=== PATIENT | female | born 1950 | race Caucasian/White ===

== ENCOUNTER 2022-01-25 07:53 | Inpatient (IN) | payer MEDICARE, OTHER ==
[~2022-01-25] VITALS: Ht 165.1 cm; Wt 54.4 kg
--- NOTE | 2022-01-25 07:53 | NUR ---
PT BIBRA 839 FROM HOME C/O WEAK AND DIZZY X 2 DAYS. PT IS AAOX3, NOT IN RESPIRATORY DISTRESS, HOOKED TO V/S MONITOR, KEPT RESTED AND COMFORTABLE. WILL CONTINUE TO MONITOR.
--- NOTE | 2022-01-25 08:00 | NUR ---
RECIEVED PT 71 YRS FEMAL CAME BY BALJIT from home c/o dizzness and weekness for 2 days awake and alert no weekness no pain blood drow by RN
--- NOTE | 2022-01-25 08:00 | NUR ---
SEEN AND EXAMINED BY .
--- NOTE | 2022-01-25 08:09 | NUR ---
COVID SWAB DONE AND SENT TO LAB
--- NOTE | 2022-01-25 08:10 | NUR ---
EKG done ant bed side
--- NOTE | 2022-01-25 08:14 | NUR ---
lab at bed side drowing blood culture x2 and lacutete
[2022-01-25 08:31] LABS: BASOPHILS % (AUTO) 0.3 % (0.0-2.0); EOSINOPHILS % (AUTO) 1.1 % (0.0-6.0); HEMATOCRIT 41 % (33-45); HEMOGLOBIN 13.5 g/dL (11.5-14.8); LYMPHOCYTES # (AUTO) 1.7 K/uL (0.8-4.8); LYMPHOCYTES % (AUTO) 31.6 % (20.0-44.0); MEAN CORPUSCULAR HGB CONC 33 g/dl (31.0-36.0); MEAN CORPUSCULAR VOLUME 90 fL (82-100); MONOCYTES # (AUTO) 0.5 K/uL (0.1-1.30); MONOCYTES % (AUTO) 8.7 % (2.0-12.0); NEUTROPHILS # (AUTO) 3.1 K/uL (1.8-8.9); NEUTROPHILS % (AUTO) 58.3 % (43.0-81.0); PLATELET COUNT (AUTO) 283 K/uL (150-450); RED BLOOD CELL COUNT(AUTO) 4.57 MIL/uL (4.0-5.2); WHITE BLOOD COUNT (AUTO) 5.3 K/uL (4.3-11.0)
--- NOTE | 2022-01-25 08:36 | NUR ---
MOVE SHEET SUBMITTED.
[2022-01-25 08:42] LABS: CALCIUM, SERUM 8.8 mg/dL (8.5-10.1); CARBON DIOXIDE 27 mmol/L (21-32); CHLORIDE 108 mmol/L (98-107); CREATININE 0.7 mg/dL (0.6-1.3); GLUCOSE 102 mg/dL (74-106); POTASSIUM 3.8 mmol/L (3.5-5.1); SODIUM SERUM 143 mmol/L (136-145); UREA NITROGEN, BLOOD 19 mg/dL (7-18)
--- NOTE | 2022-01-25 08:47 | NUR ---
[facility] CALLED BANDOLEER PACKER PAGED.
[2022-01-25 08:48] LABS: ALANINE AMINOTRANSFERASE 16 U/L (12-78); ALBUMIN 3.5 g/dL (3.4-5.0); ALKALINE PHOSPHATASE 84 U/L (46-116); ASPARTATE AMINOTRANSFERASE 10 U/L (15-37); BILIRUBIN,DIRECT 0.1 mg/dL (0.0-0.2); BILIRUBIN,TOTAL 0.4 mg/dL (0.2-1.0)
--- NOTE | 2022-01-25 08:48 | NUR ---
Back from ct scan of head done
--- NOTE | 2022-01-25 08:59 | NUR ---
RAVINDER GUNTER [phone]; [phone]
--- NOTE | 2022-01-25 09:00 | NUR ---
DR GRIGSBY TALKING TO JANI CASTELLON
--- NOTE | 2022-01-25 09:43 | NUR ---
Seen by hospitalist chino for telmeter bed
--- NOTE | 2022-01-25 09:55 | NUR ---
DR. FARNSWORTH ( NUROLOGY ) CALLED ORDER FOR MRI STATE ( ORDER )
--- NOTE | 2022-01-25 11:02 | NUR ---
NO CHANGE PT CONDITION STABLE
--- NOTE | 2022-01-25 11:30 | NUR ---
MRI QUTIONER DONE WITH [employer]OD FUEL PELLETIZER
[2022-01-25] MEDS: BLOOD SUGAR DIAGNOSTIC 1 EACH STRIP IN SCH ×3 (11:49→21:38)
[2022-01-25] MEDS ORDERED: BLOOD SUGAR DIAGNOSTIC 1 EACH STRIP IN SCH (12:00)
--- NOTE | 2022-01-25 12:02 | NUR ---
WATING FOR MRI TO BE DONE
--- NOTE | 2022-01-25 12:15 | NUR ---
PT IS WHEELED TO MRI VIA WHEELCHAIR.
--- NOTE | 2022-01-25 12:35 | NUR ---
TO MRI VIA WC STABLE VS AND CONDITION AWAKE AND ALERT by MRI TACK
--- NOTE | 2022-01-25 13:10 | NUR ---
Back from MRI done tolorated procedure no pain noted
--- NOTE | 2022-01-25 14:00 | NUR ---
resting and asleepy pt condition stable
--- NOTE | 2022-01-25 15:02 | NUR ---
Wating for telmetery bed vs stable no pain
--- NOTE | 2022-01-25 15:19 | NUR ---
GOT BED 107
--- NOTE | 2022-01-25 15:38 | NUR ---
to room 107 via garny HAND OFF TO MICHEL. Richard FONTAINE
[2022-01-25 16:00] VITALS: BP 126/75
--- NOTE | 2022-01-25 17:24 | NUR ---
ENGINE COWLING INSTALLER NOTES PT CAME FROM HOME WITH C/O WEAKNESS AND DIZZINESS LASTING APPROX. 2 DAYS. PT HAS A HISTORY OF CVA THAT TOOK PLACE IN 2015, APPROX 7 YEARS AGO. NOTED LEFT SIDE UPPER AND LOWER EXTREMITY WEAKNESS. PT IS COVID NEGATIVE, FULL CODE, AND HAS NO KNOWN ALLERGIES. PT IS ON RA SATING AT 96%. PT IS A/O X 4, TELE MONITOR READS SR 78. IV ACCESS NOTED ON L WRIST 20G. ALL SAFETY MEASURES IN PLACE, BED IN LOWEST LOCKED POSITION, CALL LIGHT WITHIN REACH. WILL CONTINUE TO MONITOR THROUGHOUT SHIFT. Addendum: 01/25/22 at 1730 by DOLLY BURDICK RN REPORT RECEIVED FROM MO OTOOLE RN.
[2022-01-25 17:37] LABS: THYROID STIMULATING HORMONE 1.292 uIU/mL (0.358-3.74)
--- NOTE | 2022-01-25 17:46 | NUR ---
RN NOTES BLOOD SUGAR LEVEL = 98. NO INSULIN GIVEN.
--- NOTE | 2022-01-25 18:24 | NUR ---
RN CLOSING NOTES PT IS IN BED RESTING A/O X 4. PT IS ON RA SATING AT 96%. TELE MONITOR READS SR HR 78. IV ACCESS ON L WRIST 20G PATENT AND INTACT. ALL NEEDS MET DURING SHIFT. ALL SAFETY MEASURES IN PLACE, BED IN LOWEST LOCKED POSITION, SR UP X 2, CALL LIGHT WITHIN REACH. WILL ENDORSE TO PLAN CONSULTANT NURSE FOR ABBY.
--- NOTE | 2022-01-25 19:25 | NUR ---
PLAN CHECKER OPENING NOTES RECEIVED PATIENT LAYING AWAKE IN BED. A/O X4. PATIENT WITH REGULAR AND UNLABORED BREATHING ON ROOM AIR, TOLERATED WELL. NO SIGNS AND SYMPTOMS OF DISTRESS NOTED AT THIS TIME. NO COMPLAINS OF PAIN OR DISCOMFORT AT THIS TIME. PATIENT IS ON TELE MONITOR READING SR @ 82 BPM. IV ACCESS L WRIST G #20 SL. IV ACCESS PATENT AND INTACT. SAFETY PRECAUTIONS ENFORCED WITH BED LOCKED AND AT LOWEST POSITION. CALL LIGHT WITHIN REACH AT ALL TIMES. WILL CONTINUE TO MONITOR PATIENT.
[2022-01-25 20:00] VITALS: BP 106/79
[2022-01-25] MEDS ORDERED: ATORVASTATIN 10 MG TABLET PO SCH (22:00)
[2022-01-26] VITALS: BP 109/72
[2022-01-26 04:00] VITALS: BP 106/73
--- NOTE | 2022-01-26 06:43 | NUR ---
WEB SPECIALIST CLOSING NOTES PATIENT ASLEEP IN BED EASILY AROUSABLE. A/O X4. PATIENT WITH REGULAR AND UNLABORED BREATHING ON ROOM AIR, TOLERATED WELL. NO SIGNS AND SYMPTOMS OF DISTRESS NOTED AT THIS TIME. NO COMPLAINS OF PAIN OR DISCOMFORT AT THIS TIME. PATIENT IS ON TELE MONITOR READING SR @ 85 BPM. IV ACCESS L WRIST G #20 SL. IV ACCESS PATENT AND INTACT. SAFETY PRECAUTIONS ENFORCED WITH BED LOCKED AND AT LOWEST POSITION. CALL LIGHT WITHIN REACH AT ALL TIMES. WILL ENDORSE CONTINUITY OF CARE TO DAY SHIFT NURSE.
[2022-01-26 08:00] VITALS: BP 124/75
--- NOTE | 2022-01-26 08:00 | NUR ---
KALSOMINER NOTES PATIENT AWAKE IN BED. A/O X1-2. PATIENT WITH REGULAR AND UNLABORED BREATHING ,ON RA NO SOB NO SIGNS AND SYMPTOMS OF DISTRESS NOTED AT THIS TIME. NO COMPLAINS OF PAIN OR DISCOMFORT AT THIS TIME. PATIENT ON TELE MONITOR READING SR IV ACCESS PATENT AND INTACT LT WRIST . SAFETY PRECAUTIONS ENFORCED WITH BED LOCKED AND AT THE LOWEST POSITION. CALL LIGHT WITHIN REACH AT ALL TIMES.OF CARE TO DAY SHIFT . PT AT BEDSIDE ABLE TO AMBULATE WITH WALKER
[2022-01-26] MEDS: BLOOD SUGAR DIAGNOSTIC 1 EACH STRIP IN SCH ×2 (08:13→11:37)
[2022-01-26] MEDS ORDERED: CLOPIDOGREL BISULFATE 75 MG TABLET PO SCH (09:00)
[2022-01-26] MEDS ORDERED: ASPIRIN EC 325 MG TABLET.DR PO SCH (09:00)
[2022-01-26 09:16] LABS: BASOPHILS % (AUTO) 0.3 % (0.0-2.0); EOSINOPHILS % (AUTO) 0.4 % (0.0-6.0); HEMATOCRIT 43 % (33-45); HEMOGLOBIN 14.2 g/dL (11.5-14.8); LYMPHOCYTES # (AUTO) 0.9 K/uL (0.8-4.8); LYMPHOCYTES % (AUTO) 16.5 % (20.0-44.0); MEAN CORPUSCULAR HGB CONC 33 g/dl (31.0-36.0); MEAN CORPUSCULAR VOLUME 89 fL (82-100); MONOCYTES # (AUTO) 0.2 K/uL (0.1-1.30); MONOCYTES % (AUTO) 3.6 % (2.0-12.0); NEUTROPHILS # (AUTO) 4.4 K/uL (1.8-8.9); NEUTROPHILS % (AUTO) 79.2 % (43.0-81.0); PLATELET COUNT (AUTO) 298 K/uL (150-450); RED BLOOD CELL COUNT(AUTO) 4.78 MIL/uL (4.0-5.2); WHITE BLOOD COUNT (AUTO) 5.5 K/uL (4.3-11.0)
[2022-01-26 09:26] LABS: CREATININE 0.7 mg/dL (0.6-1.3); POTASSIUM 3.7 mmol/L (3.5-5.1)
--- NOTE | 2022-01-26 10:50 | NUR ---
PROJECT GEOPHYSICIST NOTE ST AT BEDSIDE SWALLOW EVAL DONE ,OK TO ON REGULAR DIET ,WILL F\U
[2022-01-26 12:00] VITALS: BP 129/84
--- NOTE | 2022-01-26 12:30 | NUR ---
HANDLE FINISHER NOTE HAVING LUNCH , ABLE TO EAT SELF NOT IN DISTRESS
--- NOTE | 2022-01-26 15:41 | NUR ---
DIRECTOR OF PHYSICIAN PRACTICES NOTE NEW HL INSERTED JENNIFER 22 ON RT FA WITH GOOD BLOOD RETURN , ALL NEEDS ATTENDED, WILL CONT TO MONITOR
[2022-01-26 16:00] VITALS: BP 127/87
--- NOTE | 2022-01-26 17:00 | NUR ---
telecommunications administrator note patient and son of patient wants to b discharge home , called to dr jade dinero to discharge home
--- NOTE | 2022-01-26 17:50 | NUR ---
telecommunications network engineer note discharge instruction given, tele remove, hl on r fa removed, no active bleeding noted, instructed to f\u with primary care doctor , explained about home meds and possible side effects, per dr hansen notes patient has at home Plavix Lipitor and asa asked dr hansen about new px , son and patient dont want wait for additional discharge paper work from doctor , instructed to f\u a with primary care doctor and given list medication was taken in hospital , educated patient written information given , patient and son understand about stoke symptoms , belonging checked by duane Fernandez and paced on w\c , and taken to lobby with stable condition
--- NOTE | 2022-01-27 09:49 | NUR ---
SS received consult regarding stroke. Pt. was discharged over the weekend, SW was not able to meet with pt.
== END 2022-01-26 17:54 | disposition home or self-care (01) | DRG 69 ==
LOC: ER 07:58 → TRANSITION 10:19 → TELE1 15:35
PROVIDERS: ADMIT Internal Medicine; ATTEND Internal Medicine
DX: G45.9 Transient cerebral ischemic attack, unspecified (principal); I69.354 Hemiplegia and hemiparesis following cerebral infarction affecting left non-dominant side; Z20.822 Contact with and (suspected) exposure to COVID-19; G31.84 Mild cognitive impairment of uncertain or unknown etiology
CPT/HCPCS: 36415; 70450-TC; 70551-TC; 71045-TC; 80048-TC; 80076-TC; 82465-TC; 82607-TC; 82962-TC; 83605-TC; 84443-TC; 84484-TC; 85025-TC; 85730-TC; 87040-TC; 87081-TC; 92521; 97112-TC; 97116-TC; 97530-TC; C9803; G0378